=== PATIENT | male | born 1970 | race American Indian/Alaskan Native ===

== ENCOUNTER 2017-04-24 13:09 | Emergency (ER) | payer SELFPAY ==
[2017-04-24 15:03] LABS: Basophils % (Auto) 0.5 % (0.0-1.8); Eosinophils % (Auto) 0.1 % (0.0-4.3); Hematocrit 34.7 % (35.5-45.6); Hemoglobin 11.8 gm/dl (11.8-15.2); Mean Corpuscular HGB Conc 34 % (32-34); Mean Corpuscular Hemoglobin 31 pg (28-32); Mean Corpuscular Volume 93 fl (84-94); Red Blood Count 3.75 M/mm3 (3.65-5.03); Red Cell Distribution Width 12.3 % (13.2-15.2); White Blood Count 5.1 K/mm3 (4.5-11.0)
[2017-04-24 15:23] LABS: Anion Gap 22 mmol/L; Blood Urea Nitrogen 8 mg/dL (9-20); Calcium 8.9 mg/dL (8.4-10.2); Carbon Dioxide 23 mmol/L (22-30); Chloride 94.9 mmol/L (98-107); Glucose 122 mg/dL (75-100); Potassium 4.6 mmol/L (3.6-5.0); Sodium 135 mmol/L (137-145)
[2017-04-24 16:52] LABS: Platelet Count 69 K/mm3 (140-440)
--- NOTE | 2017-04-24 17:42 | Emergency Department Report ---
ED Seizure HPI - General Chief Complaint: Seizure Stated Complaint: SEIZURE Time Seen by Provider: 04/24/17 17:31 Source: patient, EMS Mode of arrival: Stretcher Limitations: No Limitations - History of Present Illness Initial Comments: 46-year-old male vacuum E from [place] here with seizure. Patient had tonic- clonic seizure today. He's been without his Dilantin for over 2-3 weeks. witnessed him having tonic-clonic jerking for approximately 15 minutes. He his not brought his medications. He has no other complaints. No fevers chills nausea vomiting. Otherwise feels well. MD Complaint: seizure -: Sudden Description of Episode: tonic-clonic movement -: minutes(s) (15) Seizure History: known seizure disorder, history of non-compliance Place: other (her toe) Associated Symptoms: denies: chest pain, confusion, cough, fever/chills, loss of appetite, malaise, rash, shortness of breath, syncope, weakness, tongue injury Treatments Prior to Arrival: none - Related Data Previous Rx's Medication Instructions Recorded Last Taken Type Phenytoin [Dilantin] 300 mg PO QHS #90 capsule 04/24/17 Unknown Rx Allergies Allergy/AdvReac Type Severity Reaction Status Date / Time No Known Allergies Allergy Unverified 04/24/17 13:36 ED Review of Systems ROS: Stated complaint: SEIZURE Other details as noted in HPI Comment: All other systems reviewed and negative Constitutional: denies: chills, fever Eyes: denies: eye pain, eye discharge, vision change ENT: denies: ear pain, throat pain Respiratory: denies: cough, shortness of breath, wheezing Cardiovascular: denies: chest pain, palpitations Endocrine: no symptoms reported Gastrointestinal: denies: abdominal pain, nausea, diarrhea Genitourinary: denies: urgency, dysuria Musculoskeletal: denies: back pain, joint swelling, arthralgia Skin: denies: rash, lesions Neurological: denies: headache, weakness, paresthesias Psychiatric: denies: anxiety, depression Hematological/Lymphatic: denies: easy bleeding, easy bruising ED Past Medical Hx - Past Medical History Hx Hypertension: Yes Hx Seizures: Yes - Surgical History Past Surgical History?: No - Family History Family history: no significant - Social History Smoking Status: Current Every Day Smoker Substance Use Type: Alcohol - Medications Home Medications: Home Medications Medication Instructions Recorded Confirmed Last Taken Type Phenytoin [Dilantin] 300 mg PO QHS #90 capsule 04/24/17 Unknown Rx ED Physical Exam - General Limitations: No Limitations General appearance: alert, in no apparent distress - Head Head exam: Present: atraumatic, normocephalic - Eye Eye exam: Present: normal appearance. Absent: PERRL, scleral icterus, conjunctival injection - ENT ENT exam: Present: mucous membranes moist - Neck Neck exam: Present: normal inspection, tenderness. Absent: meningismus, lymphadenopathy - Respiratory Respiratory exam: Present: normal lung sounds bilaterally. Absent: respiratory distress, wheezes, rales - Cardiovascular Cardiovascular Exam: Present: regular rate, normal rhythm, normal heart sounds. Absent: systolic murmur, diastolic murmur, rubs, gallop - GI/Abdominal GI/Abdominal exam: Present: soft, normal bowel sounds - Rectal Rectal exam: Present: deferred - Extremities Exam Extremities exam: Present: normal inspection - Back Exam Back exam: Present: normal inspection - Neurological Exam Neurological exam: Present: alert, oriented X3, CN II-XII intact. Absent: motor sensory deficit - Psychiatric Psychiatric exam: Present: normal affect, normal mood - Skin Skin exam: Present: warm, dry, intact, normal color. Absent: rash ED Course Vital Signs 04/24/17 04/24/17 04/24/17 13:36 13:40 14:34 Temperature 99.4 F 98 F Pulse Rate 82 90 Respiratory 16 12 Rate Blood Pressure 91/49 Blood Pressure 133/77 [Left] O2 Sat by Pulse 89 100 100 Oximetry 04/24/17 18:19 Temperature 97.9 F Pulse Rate 82 Respiratory 12 Rate Blood Pressure Blood Pressure 156/86 [Left] O2 Sat by Pulse 99 Oximetry ED Medical Decision Making - Lab Data Result diagrams: 04/24/17 14:50 04/24/17 14:50 Laboratory Results - last 24 hr 04/24/17 04/24/17 04/24/17 14:50 14:50 14:50 WBC 5.1 RBC 3.75 Hgb 11.8 Hct 34.7 L MCV 93 MCH 31 MCHC 34 RDW 12.3 L Plt Count 69 L Lymph % (Auto) 7.9 L [place] % (Auto) 7.5 H Eos % (Auto) 0.1 Baso % (Auto) 0.5 Lymph # 0.4 L [place] # 0.4 Eos # 0.0 Baso # 0.0 Seg Neutrophils % 84.0 H Seg Neutrophils # 4.3 Sodium 135 L Potassium 4.6 Chloride 94.9 L Carbon Dioxide 23 Anion Gap 22 BUN 8 L Creatinine 1.0 Estimated GFR > 60 BUN/Creatinine Ratio 8.00 Glucose 122 H Calcium 8.9 Phenytoin 0.9 L - Medical Decision Making 46-year-old male here with seizures. He has not been on his Dilantin for over 3 weeks. At this point I do not need to check a level given his level will likely be 0. Plan to treat him with a Dilantin oral load 1000 mg and we will restart his oral Dilantin at 300 mg daily. Discussed plan with patient and he is comfortable with plan. is also comfortable with the plan. Portions of this chart were dictated with dictation software. There may be dictation errors contained within this note. Critical care attestation.: If time is entered above; I have spent that time in minutes in the direct care of this critically ill patient, excluding procedure time. ED Disposition Clinical Impression: Seizure Disposition: DC-01 TO HOME OR SELFCARE Is pt being admited?: No Condition: Stable Instructions: Recurrent Seizures Adult (ED) Prescriptions: Phenytoin [Dilantin] 300 mg PO QHS #90 capsule Referrals: PRIMARY CARE, [Primary Care Provider] - 3-5 Days
[2017-04-24] MEDS ORDERED: DILANTIN PO ONE ×4 (18:22→19:01)
[2017-04-24] MEDS ORDERED: CEREBYX 1,000 MG.PE in NACL 0.9% 100 ML IV ONE (18:29)
[2017-04-24] MEDS ORDERED: NACL 0.9% IV ONE ×2 (18:30→19:00)
[2017-04-24] MEDS ORDERED: DILANTIN IV ONE ×2 (18:30→19:00)
[2017-04-24 19:37] VITALS: BP 163/76
== END 2017-04-24 19:51 | disposition home or self-care (01) ==
LOC: ED 13:09
DX: R56.9 Unspecified convulsions (principal); I10 Essential (primary) hypertension; F17.200 Nicotine dependence, unspecified, uncomplicated
CPT/HCPCS: 36415; 80048; 80185; 85025; 99284; J1165